=== PATIENT | female | born 1975 | race Caucasian/White ===

== ENCOUNTER 2025-03-15 17:46 | Emergency (ER) | payer SELFPAY ==
[~2025-03-15] VITALS: Ht 154.9 cm; Wt 61.4 kg
[2025-03-15 18:26] VITALS: BP 175/90; PULSE 94; RESP 18; TEMP 98.6; O2SAT 99
== END 2025-03-15 18:27 | disposition home or self-care (01) ==
LOC: ER 17:47 → EEVIPCON 17:47 → ER 18:27
DX: Z00.8 Encounter for other general examination (principal); Z88.0 Allergy status to penicillin
CPT/HCPCS: 99283